=== PATIENT | male | born 1990 | race Caucasian/White ===

== ENCOUNTER 2016-09-07 02:07 | Emergency (ER) | payer OTHER ==
[~2016-09-07] VITALS: Ht 177.8 cm; Wt 67.4 kg
[2016-09-07 02:10] VITALS: BP 120/74
[2016-09-07] MEDS ORDERED: DIPH,PERTUSS(ACELL),TET VAC/PF 0.5 ML IM-VACC ONE ×2 (02:45→03:30)
[2016-09-07] MEDS ORDERED: LIDOCAINE 1%, 20ML ONE (02:45)
[2016-09-07] MEDS ORDERED: LIDOCAINE 1%, 20ML SQ ONE (03:00)
[2016-09-07] MEDS ORDERED: BACITRACIN ZINC OINT 500U/GM, 0.9 GM ONE (04:36)
== END 2016-09-07 05:19 | disposition home or self-care (01) ==
LOC: ED 05:18
DX: S61.421A Laceration with foreign body of right hand, initial encounter (principal); W01.110A Fall on same level from slipping, tripping and stumbling with subsequent striking against sharp glass, initial encounter; Y93.89 Activity, other specified; Y99.8 Other external cause status; Y92.009 Unspecified place in unspecified non-institutional (private) residence as the place of occurrence of the external cause
CPT/HCPCS: 12032; 90471; 90715; 99284; J3490